=== PATIENT | female | born 1950 | race Caucasian/White ===

== ENCOUNTER → 2021-12-08 18:51 | Outpatient (CLI) | payer MEDICARE, SELFPAY ==
--- NOTE | 2021-12-08 13:15 | DI.RAD_ITS ---
Exam(s) XR CHEST 2V PA LATERAL EXAM: XR CHEST 2V PA LATERAL CLINICAL HISTORY: Cough, R05.9, r/o pna. TECHNIQUE: 2D digital imaging was performed. COMPARISON: No exams were available for comparison FINDINGS: 2 views: Heart size is normal. The mediastinum is not widened. Lungs are clear. No infiltrates nor pleural effusions. IMPRESSION: No acute pulmonary findings. DATA REPOSITORY: RADIATION DOSE DELIVERED:
== END ==
PROVIDERS: Visit Provider Nurse Practitioner Family
DX: R05.8 Other specified cough (principal)
CPT/HCPCS: 71046

== ENCOUNTER 2021-12-08 19:07 | Outpatient (REF) | payer MEDICARE, SELFPAY ==
--- OUTSIDE RECORDS SUMMARY | 2021-12-08 19:09 | XMS_ITS ---
:1950 Author Care Team Providers Name Role Phone LILIANA ARCHER Primary Care Provider Unavailable Allergies Code Code System Name Reaction Severity Status Onset NKDA ? Medications Name Status Start Date Stop Date ? ? atorvastatin 10 mg tablet Active ? Not av ailable Take 1 tablet every day by oral route for 90 days. Boostrix Tdap 2.5 Lf unit-8 mcg-5 Lf/0.5 mL Completed ? 02/09/2020 intramuscular syringe calcium carbonate 650 mg calcium (1,625 mg) tablet Completed 04/11/2012 08/04/2013 1 Tablet: qd - daily methimazole 5 mg tablet Completed 11/13/2012 11/14/19 13 Tablet: qd - daily propranolol 60 mg tablet Completed 09/26/2011 012 1 (one) Tablet: daily sulfamethoxazole 800 mg-trimethoprim 160 mg Completed ? 02/09/2020 tablet triamcinolone acetonide 0.1 % topical ointment Completed ? 11/18/2018 Vitamin D3 25 mcg (1,000 unit) capsule Active ? Not available Take 1 capsule every day by oral route. Notes: Hydroquinone 8%- tretinoin 0.1% -kojic acid 1%, niacinamde 4% and fluocinolone 0.025% combo Medications reconciled 08/15/2021 Problems Name Status Onset Date Source ? Thyrotoxicosis Active ? History Actinic Keratosis Active ? History Not for Resuscitation Active ? History Adult Health Examination Unknown ? History Gynecologic Examination Unknown ? History Screening Mammography Unknown ? History Procedure by Method Unknown ? History Procedures Date Name Performed by ? 07/09/1979 Cryotherapy Information not avai lable Notes: dysplasia 11/12/2018 MAMMO, Screening, Tomosynthesis, [facility] Radiology (Internal) Bilateral [address] [place], [place] [id number] (Work Place) 02/09/2020 MAMMO, Screening, Tomosynthesis, [facility] Radiology (Internal) Bilateral [address] [place] [address] (Work Place) 03/28/2021 MAMMO, Screening, Tomosynthesis, [facility] Radiology (Internal) Bilateral [address] [place] [address] (Work Place) 08/15/2021 MAMMO, Screening, Tomosynthesis, [facility] Radiology (Internal) Bilateral [address] [place], [place] [phone] (Work Place) Results Lab Results Date Name Specimen Result Interpretation Description Value Range Status Address ? 08/16/2021 TSH, S ? Tsh 3.15 uIU/mL 0.36-3.74 Final [place] Serum or uIU/mL [facility] (Internal) : [address] 08/16/2021 T4, S Low Ft4 0.75 NG/dL 0.76-1.46 Final [place], NG/dL [facility] (Internal) : [address] 08/16/2021 CMP, S ? g/r 98 mg/dL 74-106 Final Nort [facility] Serum or mg/dL [facility] (Internal) : [address] t ? ? S ? Bun 13 mg/dL 7-18 mg/dL Final [facility] : [address] t ? ? S ? Crea 0.8 mg/dL 0.6-1.0 Final [facility] mg/dL [facility] : [address] t ? ? S ? Ca 9.0 mg/dL 8.5-10.1 Final [facility] mg/dL [facility] ([facility] : [address] t ? ? S ? Na 140 mmol/L 136-145 Final [facility] mmol/L [facility] ([facility] : [address] t ? ? S ? K 3.7 mmol/L 3.5-5.1 Final [facility] mmol/L [facility] ([facility] : [address] t ? ? S ? Cl 103 mmol/l 98-107 Final [facility] mmol/l [facility] ([facility]) : [address] t ? ? S ? Tco2 31.5 mmol/L 21.0-32.0 Final No rth mmol/L [facility] ([facility] : [address] t ? ? S ? Tp 7.6 g/dL 6.4-8.2 Final [facility] g/dL [facility] : [address] t ? ? S ? Alb 4.0 g/dL 3.4-5.0 Final [facility] g/dL [facility] ([facility] : [address] t ? ? S ? Tbil 0.40 mg/dL 0.20-1.00 Final [facility] mg/dL [facility] ([facility] : [address] t ? ? S ? Alp 76 U/L 46-116 U/L Final [facility] (Internal) : [address] t ? ? S ? Alt (Sgpt) 29 U/L 14-59 U/L Final [facility] : [address] t ? ? S ? Ast (Sgot) 17 U/L 15-37 U/L Final [facility] : [address] t 08/16/2021 Lipid S High Chol 222 mg/dL 0-200 Final Nor th Panel, mg/dL [facility] ([facility] : [address] t ? ? S ? Trig 45 mg/dL 0-150 Final [facility] mg/dL [facility] ([facility] : [address] t ? ? S High Hdl 75 mg/dL 40-60 Final [facility] mg/dL [facility] ([facility] : [address] t ? ? S High Ldl 138 mg/dL 0-130 Final [facility] mg/dL [facility] ([facility] : [address] t 02/10/2020 T4, S ? Ft4 0.80 NG/dL 0.78-2.19 Final [place] Free, NG/dL [facility] (Internal[facility] : [address] 02/10/2020 Lipid S High Chol 219 mg/dL 50-200 Final Nor th Panel, mg/dL [facility] (Internal) : [address] ? ? S ? Trig 52 mg/dL 10-150 Final [place] mg/dL [facility] L [facility] (Internal) : [address] ? ? S High Hdl 69 mg/dL 40-60 Final [place] mg/dL [facility] (Internal) : [address] ? ? S High Ldl 140 mg/dL 0-130 Final [place] mg/dL [facility] (Internal) : [address] 02/10/2020 TSH, S ? Tsh 2.59 u[IU]/mL 0.47-4.68 Fin al [facility] Serum or u[IU]/mL Countr y [facility] L [facility] (Internal) : [address] 02/09/2020 Urinalys ? Color Yellow ? ? P_nc Primary is, Care Dipstick [place] , Reflex ns: [address], [place] ? ? ? Appearance Clear ? ? P_nc Primary Care [place]/Orl ea ns: [address], [place] ? ? ? Glucose Normal ? ? P_nc [place] juan Care [place]a ns: [address], [place] ? ? ? Bilirubin Negative ? ? P_nc Primary Care [place]l ea ns: [address], [place] ? ? ? Ketones Negative ? ? P_nc P rimary Care [place] ns: [address], [place] ? ? ? Specific 1.015 ? ? P_nc Pr imary [place] [facility] [place] ns: [address], [place] ? ? ? Blood Negative ? ? P_nc Dee juan Care [place] ea ns: [address], [place] ? ? ? Ph 5.0 ? ? P_nc Prima ry Care [place]l ea ns: [address], [place] ? ? ? Protein Negative ? ? P_nc P rimary Care [place]l ea ns: [address], [place] ? ? ? Urobilinogen 0.2 ? ? P_n c Primary Care [place]l ea ns: [address], [place] ? ? ? Nitrite negative ? ? P_nc P rimary Care [place]l ea ns: [address], [place] ? ? ? Leukocyte Trace ? ? P_nc P rimary Esterase Care [place]l ea ns: [address], [place] 02/07/2019 Culture UR - Final microbiology ? Final [place] ([place] results [facility] Count), [facility] Lab Urine (Internal) : [address] 02/07/2019 Urinalys Urine ? Color Yellow ? ? P_nc Primary is, clean Care Dipstick catch [place] , Reflex ns: [address], [place] ? ? Urine ? Appearance Clear ? ? P_nc Primary clean Care catch [place]l ea ns: [address], [place] ? ? Urine ? Glucose Normal ? ? P_nc Dee juan clean Care catch [place]l ea ns: [address], [place] ? ? Urine ? Bilirubin Negative ? ? P_nc Primary clean Care catch [place]l ea ns: [address], [place] ? ? Urine ? Ketones Negative ? ? P_nc P rimary clean Care catch [place]l ea ns: [address], [place] ? ? Urine ? Specific 1.025 ? ? P_nc Pr imary clean [place] Care catch [place]l [place] ns: [address], [place] ? ? Urine ? Blood Negative ? ? P_nc Dee juan clean Care catch [place]l [place] ns: [address], [place] ? ? Urine ? Ph 5.0 ? ? P_nc Prima ry clean Care catch [place]l e[place] ns: [address], [place] ? ? Urine ? Protein Negative ? ? P_nc P rimary clean Care catch [place]l e[place] ns: [address], [place] ? ? Urine ? Urobilinogen 0.2 ? ? P_n c Primary clean Care catch [place]l ea ns: [address], [place] ? ? Urine ? Nitrite negative ? ? P_nc P rimary clean Care catch [place]l ea ns: [address], [place] ? ? Urine ? Leukocyte Small ? ? P_nc P rimary clean Esterase Care catch [place]l e[place] ns: [address], [place] Past Encounters 08/15/2021 Adult Health Examination; Hyperlipidemia ; Thyrotoxicosis; Low Back Pain Lily Fan, [employer]ACHINE OPERATOR: [address] [place] [phone], Ph. 11/16/2020 Gynecologic Examination Sabrina Tafoya CNM: [address] [place] [address], Ph. Social History Tobacco Smoking Status Never Smoker Vaccine List Vaccine Type COVID-19, mRNA, LNP-S, PF, 100 mcg/0.5 m L dose (Moderna) 09/09/2020 10/07/2020 05/18/2021?0.25 mL DTaP 09/03/2019 Hep A, adult 05/05/2014?0.5 mL 11/03/2014?0.5 mL influenza, high dose seasonal 04/04/2018?0.5 mL 04/10/2019?0.5 mL influenza, high-dose, quadrivalent 03/31/2020 05/06/2021?0.7 mL influenza, seasonal, injectable 06/05/2017?0.5 mL influenza, seasonal, injectable, preserv ative free 08/29/2011?0.5 mL 04/02/2013?0.5 mL 05/05/2014?0.5 mL 04/28/2015?0.5 mL 05/05/2016?0.5 mL pneumococcal conjugate PCV 13 06/08/2015?0.5 mL pneumococcal polysaccharide PPV23 07/25/2016?0.5 mL Tdap 08/26/2007 zoster live 08/15/2016?0.65 mL Plan of Care Reminders Provider Appointments None recorded. ? ? Lab None recorded. ? ? Referral None recorded. ? ? Procedures None recorded. ? ? Surgeries None recorded. ? ? Imaging None recorded. ? ? Vitals 08/15/2021 11:00AM AWV 40 Height Weight BMI Blood Pressure 165.1 cm 67.19 kg 24.6 kg/m2 116/62 mm[Hg] 11/16/2020 10:50AM HME 30 Height Weight BMI Blood Pressure 165.1 cm 65.59 kg 24.1 kg/m2 120/68 mm[Hg] 02/09/2020 12:40PM AWV 40 Height Weight BMI Blood Pressure 165.1 cm 63.96 kg 23.5 kg/m2 120/68 mm[Hg] 02/07/2019 03:00PM Follow Up 20 Height Weight BMI 165.1 cm 63.14 kg 23.2 kg/m2 11/12/2018 01:40PM HME 30 Height Weight BMI Blood Pressure 165.1 cm 63.68 kg 23.4 kg/m2 120/68 mm[Hg] 07/31/2017 Height Weight Blood Pressure 165.1 cm 63.05 kg 118/74 mm[Hg] 10/19/2016 Height Weight Blood Pressure 165.1 cm 64.82 kg 120/68 mm[Hg] 07/25/2016 Height Weight Blood Pressure 165.74 cm 64.41 kg 128/82 mm[Hg] 09/15/2014 Height Weight Blood Pressure 165.74 cm 65.77 kg 120/70 mm[Hg] 05/05/2014 Height Weight Blood Pressure 165.74 cm 65.77 kg 128/80 mm[Hg] 02/13/2014 Height Weight Blood Pressure 165.74 cm 67.13 kg 124/70 mm[Hg] 09/11/2013 Height Weight Blood Pressure 165.74 cm 66.18 kg 110/60 mm[Hg] 08/04/2013 Height Weight Blood Pressure 165.71 cm 68.04 kg 138/80 mm[Hg] 09/03/2012 Height Weight Blood Pressure 165.71 cm 68.08 kg 120/62 mm[Hg] 09/26/2011 Weight Blood Pressure 61.69 kg 118/62 mm[Hg] 09/12/2011 Weight Blood Pressure 61.69 kg 110/70 mm[Hg] 08/29/2011 Height Weight Blood Pressure 165.71 cm 61.23 kg 112/62 mm[Hg] 02/10/2011 Height Weight Blood Pressure 165.74 cm 66.68 kg 116/66 mm[Hg] 12/30/2010 Height Weight Blood Pressure 165.74 cm 64.86 kg 130/78 mm[Hg] 11/29/2010 Height Weight Blood Pressure 165.74 cm 65.77 kg 132/68 mm[Hg] 07/07/2010 Weight Blood Pressure 65.77 kg 124/64 mm[Hg] 06/08/2009 Weight Blood Pressure 66.68 kg 140/64 mm[Hg] 05/28/2008 Height Weight Blood Pressure 165.74 cm 65.32 kg 124/72 mm[Hg] 04/30/2007 Weight Blood Pressure 65.32 kg 140/80 mm[Hg] 04/27/2006 Height Weight Blood Pressure 167.64 cm 64.86 kg 124/80 mm[Hg] 02/28/2005 Height Weight Blood Pressure 167.64 cm 63.96 kg 122/66 mm[Hg]
== END 2021-12-08 19:08 | disposition home or self-care (01) ==
LOC: LBN 19:07
PROVIDERS: Visit Provider Nurse Practitioner Family
DX: J02.9 Acute pharyngitis, unspecified (principal)
CPT/HCPCS: 87070

== ENCOUNTER 2025-05-11 12:55 | Outpatient (CLI) | payer MEDICARE, SELFPAY ==
[2025-05-11 12:45] LABS: Abs Immature Grans 0.02 10^3/uL (0.0-0.06); HCT 41.3 % (36.0-46.0); HGB 13.0 g/dL (11.2-15.7); Immature Grans % 0.6 %; MCH 28.0 pg (27.0-33.0); MCHC 31.5 % (32.0-36.0); MCV 89 fL (80-95); MPV 13.7 fL (8.0-11.0); RBC 4.65 10^6/uL (3.93-5.22); RDW 13.2 % (11.7-14.6); RDW-SD 43.0 fL; WBC 3.56 10^3/uL (4.4-10.8)
[2025-05-11 13:08] LABS: Platelet Count 79 10^3/uL (130-400); RBC Morphology Normal
[2025-05-11 13:57] LABS: ALT 36 U/L (14-59); AST 32 U/L (15-37); Albumin 4.1 g/dL (3.4-5.0); Alkaline Phosphatase 80 U/L (46-116); Anion Gap 8.7 mmol/L (3-11); BUN 18 mg/dL (7-18); Bilirubin, Total 0.6 mg/dL (0.2-1.0); CO2 30.3 mmol/L (21.0-32.0); Calcium 9.1 mg/dL (8.5-10.1); Chloride 102 mmol/L (98-107); Glucose 108 mg/dL (74-106); Potassium 3.7 mmol/L (3.5-5.1); Sodium 141 mmol/L (136-145); Total Protein 7.4 g/dL (6.4-8.2)
== END 2025-05-11 12:56 | disposition home or self-care (01) ==
LOC: LBO 12:56
PROVIDERS: Visit Provider Student in an Organized Health Care Education/Training Program
DX: D69.6 Thrombocytopenia, unspecified (principal)
CPT/HCPCS: 36415; 80053; 85025